=== PATIENT | female | born 1990 | race African-American/Black ===

== ENCOUNTER 2022-06-18 03:33 | Emergency (ER) | payer MEDICAID, SELFPAY ==
[2022-06-18 03:39] VITALS: BP 135/107; PULSE 95; RESP 16; TEMP 36.4; O2SAT 100
--- NOTE | 2022-06-18 04:13 | ED.GENADULT ---
HPI - General Adult General Chief complaint: Abdominal Pain Stated complaint: RLQ abd pain Time Seen by Provider: 06/18/22 03:55 History of Present Illness HPI narrative: this is a 31-year-old female presenting ED with chief complaint of urinary retention. Patient notes that 1 week ago she felt like if she had to urinate and when she went to the restroom she was unable to. Later that day she was able to void her bladder but has become progressively more difficult throughout the week. She has noted that she has had vaginal fullness over that time.In the last 24 hours she has been unable to void at all. Now she is having significant lower abdominal pain. patient has noticed increased urinary urgency but no dysuria or hematuria when she does urinate she denies fever, chills, nausea vomiting or diarrhea. Patient denies any recent vision changes or eye pain. She has no history of MS. Patient denies numbness tingling or weakness to any extremity does not note any neurologic signs. She denies dizziness or vertigo. She is having no issues with bowel continence. She has no history of lower back pain, cancer, IV drug abuse saddle anesthesia or difficulty walking. Related Data Allergies Allergy/AdvReac Type Severity Reaction Status Date / Time No Known Allergies Allergy Verified 06/18/22 03:48 Review of Systems Review of Systems: CONSTITUTIONAL: Denies night sweats. EYES: No eye pain ENT: Denies rhinorrhea CARDIOVASCULAR: Denies palpitations RESPIRATORY: Denies hemoptysis GASTROINTESTINAL: Denies hematemesis GENITOURINARY: Denies hematuria. SKIN: Denies rash MUSCULOSKELETAL: Denies myalgia. NEUROLOGIC: Denies weakness. PSYCHIATRIC: Denies delusions [facility] Social History Social History (Updated 06/18/22 @ 05:26 by Jorge Lundberg MD) Social History: Patient denies use of alcohol tobacco or marijuana Exam Narrative: APPEARANCE: patient appears very uncomfortable Head atraumatic. EYES: PERRLA/EOMI, NOSE: Normal no drainage NECK: Supple, Trachea midline RESPIRATORY: CTAB, No increased work of breathing. CARDIOVASCULAR: S1S2 appreciated ABDOMINAL: suprapubic fullness and tenderness. MUSCULOSKELETAl: No obvious deformities NEURO: Alert. Cranial nerves 2-12 grossly intact. Sensation light touch, motor function cerebellar function intact for 4 extremities. Gait exam was normal. SKIN:: Warm, dry. Normal color PSYCHIATRIC: Normal affect Course Vital Signs Vital signs: Vital Signs Temperature 97.6 F 06/18/22 03:39 Pulse Rate 95 06/18/22 03:39 Respiratory Rate 16 06/18/22 03:39 Blood Pressure 135/107 H 06/18/22 03:39 Pulse Oximetry 100 06/18/22 03:39 Oxygen Delivery Room Air 06/18/22 03:39 Temperature 97.6 F 06/18/22 03:39 Pulse Rate 95 06/18/22 03:39 Respiratory Rate 16 06/18/22 03:39 Blood Pressure 135/107 H 06/18/22 03:39 Pulse Oximetry 100 06/18/22 03:39 Oxygen Delivery Room Air 06/18/22 03:39 Medical Decision Making MDM Narrative Medical decision making narrative: This is a 31-year-old female presenting ED with urinary retention. A Ugalde was placed with immediate relief of her pain. Nursing staff noted that the patient's urethral opening was for smaller than usual. Urinalysis, urine and basic lab work were obtained. Urine revealed patient is and is approximately 8-10 weeks by last menstrual. After the Ugalde was placed the patient has no abdominal pain. She has no cramping, vaginal bleeding or vaginal discharge. I reached out to the OBGYN on-call Dr. Macias to see if there are any additional concerns for urinary retention in early . There were no additional concerns outside of standard treatment for retention. Given the patient's benign exam no indication for transvaginal ultrasound at this time. Urinalysis was not indicative of UTI. The patient's lab work was within normal limits. I cannot
[2022-06-18 04:42] LABS: Appearance Urine Clear (Clear); Bilirubin Urine Negative (Negative); Blood Urine Negative (Negative); Color Urine Yellow (Yellow); Glucose Urine UA Negative (Negative); Ketones Urine Negative (Negative); Leukocyte Esterase Ur Negative LEU/UL (Negative); Nitrate Urine Negative (Negative); Protein Urine Negative (Negative); Urobilinogen Urine 0.2 mg/dL (<2.0)
[2022-06-18 04:44] LABS: Bacteria Urine Trace /hpf; Mucus Urine Rare /lpf; RBC Urine 0-2 /hpf (0-2); WBC Urine 0-3 /hpf
[2022-06-18 04:46] LABS: Add Urine Microscopic? NO
[2022-06-18 04:47] LABS: Basophils Percent Auto 0.1 % (0.2-1.2); Eosinophils Absolute Auto 0.2 K/mm3 (0-0.3); Eosinophils Percent Auto 2.3 % (0-4.4); Hematocrit 31.6 % (37.0-47.0); Hemoglobin 11.1 g/dL (12.0-15.0); Immature Granulocyte Absolute 0.02 K/mm3 (0.00-0.031); Immature Granulocyte Percent A 0.2 % (0-0.5); Lymphocytes Absolute Auto 1.24 K/mm3 (0.9-3.2); Lymphocytes Percent Auto 13.8 % (18.3-44.2); Mean Corpuscular HGB Conc 35.1 g/dl (32-36); Mean Corpuscular Hemoglobin 28.9 pg (26-34); Mean Corpuscular Volume 82.3 fl (80-100); Mean Platelet Volume 9.6 fl (7.4-10.4); Monocytes Absolute Auto 0.8 K/mm3 (0.1-0.6); Monocytes Percent Auto 9.1 % (2.6-8.5); Neutrophils Absolute Auto 6.7 K/mm3 (1.3-6.7); Neutrophils Percent Auto 74.5 % (45.5-73.1); Platelet Count Result 206 k/mm3 (150-375); Red Blood Count 3.84 M/mm3 (4.2-5.4); Red Cell Distribution Width 13.6 % (11.5-14.5)
[2022-06-18 04:59] LABS: Anion Gap 5 mmol/L (8-16); Blood Urea Nitrogen 9 mg/dL (7-17); Calcium 8.9 mg/dL (8.4-10.2); Carbon Dioxide 24 mmol/L (22-30); Chloride 104 mmol/L (98-107); Estimated CRCL calculation 104 ml/min; Estimated Glomerular Filt Rate > 60; Glucose 100 mg/dL (65-110); Potassium 4.1 mmol/L (3.4-5.0); Sodium 133 mmol/L (137-145)
== END 2022-06-18 05:50 | disposition home or self-care (01) ==
PROVIDERS: Emergency Provider Emergency Medicine
DX: O26.891 Other specified pregnancy related conditions, first trimester (principal); R33.9 Retention of urine, unspecified; Z3A.00 Weeks of gestation of pregnancy not specified
CPT/HCPCS: 36415; 51702; 80048; 81003; 81025; 84702; 85025; 99283

== ENCOUNTER 2023-03-05 08:10 | Emergency (ER) | payer OTHER, SELFPAY ==
--- NOTE | ~2023-03-05 | CT_ITS ---
EXAMINATION: CT facial bones w con DATE: 03/05/2023 12:55 INDICATION: Right-sided predominant facial swelling TECHNIQUE: Computed tomography (CT) of the facial bones and maxillofacial region was performed with 1 00 mL Omnipaque-350 intravenous contrast. Coronal reconstructions were obtained. Automated exposure c ontrol and iterative reconstruction technique were employed. The dose-length product was 279.37 mGy-c m. COMPARISON: None. FINDINGS: Mild soft tissue swelling and subcutaneous edema extending from the forehead compressive bilateral pr eseptal soft tissues about the nose and superior labia. No abscess or soft tissue gas. Orbits appear otherwise normal with no post septal inflammatory stranding. Mild mucosal thickening throughout the p aranasal sinuses. No maxillofacial fractures or cortical erosions. Nasal septum is midline. Mastoid a ir cells and middle ear cavities are clear. Epiglottis and prevertebral soft tissues are normal witho ut evident airway narrowing. Right vertebral artery is dominant. Visualized portions of the brain are unremarkable. Bilateral parotid and submandibular glands appear normal and symmetric. There are a fe w asymmetric mildly prominent but still normal sized likely reactive submandibular and jugular chain lymph nodes, none measuring greater than 1 cm in maximal short axis diameter. IMPRESSION: 1. Mild facial soft tissue swelling and subcutaneous edema consistent with provided history of cellul itis. No evident abscess. Reviewed, dictated and finalized at location A. IMPRESSION: 1. Mild facial soft tissue swelling and subcutaneous edema consistent with prov ided history of cellulitis. No evident abscess.
[2023-03-05 08:16] VITALS: BP 143/72; PULSE 81; RESP 18; TEMP 36.5; O2SAT 100
[2023-03-05 11:30] VITALS: BP 136/80; PULSE 82; RESP 16; TEMP 36.8; O2SAT 98
--- NOTE | 2023-03-05 11:31 | ED.ALLEREA ---
HPI - Allergic Reaction General Chief complaint: Allergic Reaction <MANUEL Camarena Last Filed: 03/05/23 19:39> Stated complaint: swelling to face <MANUEL Camarena Last Filed: 03/05/23 19:39> Time Seen by Provider: 03/05/23 09:41 <MANUEL Camarena Last Filed: 03/05/23 19:39> History of Present Illness HPI narrative: 32-year-old female reports for evaluation of swelling to her face started this morning. Patient states yesterday, she noticed itchiness to her face and small itchy lesion she reports looks like mosquito bites to her right arm. States those went away, but she woke up this morning with her face swollen, the right side worse than the left. She is reporting discomfort in her right eye when she looks laterally. She denies itchiness or pain otherwise. The mosquito bite lesions have since resolved. She denies tongue or lip swelling, difficulty breathing, cough or congestion, sore throat, toothache, objective fever. She does report subjective fevers this a.m., did not take her temperature. She denies blurred vision or double vision, abdominal pain, nausea, vomiting or diarrhea. <MANUEL Camarena Last Filed: 03/05/23 19:39> Related Data Allergies/adverse reactions: Allergies Allergy/AdvReac Type Severity Reaction Status Date / Time No Known Allergies Allergy Verified 03/05/23 08:41 <MANUEL Camarena Last Filed: 03/05/23 19:39> Review of Systems Review of Systems: CONSTITUTIONAL: See HPI EYES: Denies visual changes, redness, or discharge. ENT: Denies rhinorrhea, congestion, sore throat, or otalgia. CARDIOVASCULAR: Denies chest pain, palpitations, or edema. RESPIRATORY: Denies cough or dyspnea. GASTROINTESTINAL: Denies abdominal pain, nausea, vomiting, or diarrhea. GENITOURINARY: Denies dysuria or hematuria. SKIN: See HPI MUSCULOSKELETAL: Denies back pain, joint pain, or myalgia. NEUROLOGIC: Denies headache, numbness, dizziness, or weakness. PSYCHIATRIC: Denies anxiety or depression. <MANUEL Camarena Last Filed: 03/05/23 19:39> [facility] Social History Social History: Social History Social History: Patient denies use of alcohol tobacco or marijuana <Beatris Serra PA-C - Last Filed: 03/05/23 19:39> Exam Narrative: GENERAL: Well-appearing, in no acute distress. Resting comfortably in exam bed, speaking in full sentences. No respiratory distress. HEAD: Normocephalic EYES: PERRLA, EOMI. Reported pain lateral eye movements in the right eye. Normal sclera, no drainage. ENT: Nares clear. Mucous membranes moist. Oropharynx without tonsillar hypertrophy exudate or other lesions. No tongue or lip swelling. Edema surrounding the orbits, worse on the right side. No warmth, fluctuation or induration appreciated. NECK: Supple. CHEST: No respiratory distress. Clear to auscultation, no adventitious breath sounds. HEART: Regular rate and rhythm. No murmur heard. Normal peripheral pulses. ABDOMEN: Soft, nontender, normal active bowel sounds. EXTREMITIES: Normal range of motion. No edema. SKIN: Warm, dry, no rash. NEURO: No focal deficits. Alert and oriented x3. PSYCH: Normal mood and affect. <Beatris Serra PA-C - Last Filed: 03/05/23 19:39> Course CLINICAL RESOURCE MANAGER/PA Physician Supervision For this patient encounter, I reviewed the CLINICAL RESOURCE MANAGER or PA documentation, treatment plan, and medical decision making and I had [id number] time with this patient. I performed all aspects of the MDM as documented. <Graciela Stovall MD - Last Filed: 03/14/23 16:00> Vital Signs Vital signs: Vital Signs Temperature 97.7 F 03/05/23 08:16 Pulse Rate 81 03/05/23 08:16 Respiratory Rate 18 03/05/23 08:16 Blood Pressure 143/72 H 03/05/23 08:16 Pulse Oximetry 100 03/05/23 08:16 Oxygen Delivery Room Air 03/05/23 08:16 Temperature 98.3 F 03/05/23 14:01
[2023-03-05] MEDS: FAMOTIDINE 20 MG/2 ML VIAL IV PUSH (11:50)
[2023-03-05] MEDS: SODIUM CHLORIDE 0.9% IV 1,000 ML 999 ML IV CONT (11:50)
[2023-03-05] MEDS: diphenhydrAMINE HCl INJ 50 MG/ML VIAL 25 MG IV PUSH (11:50)
[2023-03-05 12:02] LABS: Basophils Percent Auto 0.5 % (0.2-1.2); Eosinophils Absolute Auto 0.3 K/mm3 (0-0.3); Eosinophils Percent Auto 7.5 % (0-4.4); Hematocrit 38.4 % (37.0-47.0); Hemoglobin 12.3 g/dL (12.0-15.0); Immature Granulocyte Absolute 0.01 K/mm3 (0.00-0.031); Immature Granulocyte Percent A 0.2 % (0-0.5); Lymphocytes Absolute Auto 1.43 K/mm3 (0.9-3.2); Lymphocytes Percent Auto 33.6 % (18.3-44.2); Mean Corpuscular Hemoglobin 27.3 pg (26-34); Mean Corpuscular Volume 85.1 fl (80-100); Mean Platelet Volume 10.4 fl (7.4-10.4); Monocytes Absolute Auto 0.3 K/mm3 (0.1-0.6); Monocytes Percent Auto 7.1 % (2.6-8.5); Neutrophils Absolute Auto 2.2 K/mm3 (1.3-6.7); Neutrophils Percent Auto 51.1 % (45.5-73.1); Platelet Count Result 229 k/mm3 (150-375); Red Blood Count 4.51 M/mm3 (4.2-5.4); Red Cell Distribution Width 13.6 % (11.5-14.5); White Blood Count 4.3 K/mm3 (4.5-10.0)
[2023-03-05 12:17] LABS: Alanine Aminotransferase 9 U/L (6-35); Albumin Level 3.7 g/dL (3.5-5.1); Alkaline Phosphatase 44 U/L (38-126); Anion Gap 3 mmol/L (8-16); Aspartate Amino Transferase 16 U/L (14-36); Bilirubin,Total 0.5 mg/dL (0.2-1.3); Blood Urea Nitrogen 12 mg/dL (7-17); Calcium 8.3 mg/dL (8.4-10.2); Carbon Dioxide 28 mmol/L (22-30); Chloride 105 mmol/L (98-107); Estimated CRCL calculation 89 ml/min; Estimated Glomerular Filt Rate > 60; Glucose 88 mg/dL (65-110); Potassium 4.4 mmol/L (3.4-5.0); Sodium 136 mmol/L (137-145)
[2023-03-05 12:30] VITALS: BP 130/80; PULSE 82; RESP 16; TEMP 36.8; O2SAT 100
[2023-03-05 13:00] VITALS: BP 130/80; PULSE 80; RESP 16; O2SAT 99
[2023-03-05 14:01] VITALS: BP 132/78; PULSE 80; RESP 16; TEMP 36.8; O2SAT 98
== END 2023-03-05 14:03 | disposition home or self-care (01) ==
PROVIDERS: Emergency Provider Physician Assistant
DX: L03.213 Periorbital cellulitis (principal)
CPT/HCPCS: 36415; 70487; 80053; 81025; 85025; 96361; 96374; 96375; 99284; J1100; J1200; J7030; Q9967

== ENCOUNTER 2023-06-03 11:40 | Emergency (ER) | payer OTHER, SELFPAY ==
[2023-06-03] VITALS (32 sets, daily range): BP systolic 121–144; BP diastolic 69–99; PULSE 67–106; RESP 14–32; TEMP 37.2–37.3; O2SAT 95–100
--- NOTE | ~2023-06-03 | XR_ITS ---
EXAMINATION: XR chest 1V portable INDICATION: Chest pain TECHNIQUE: Portable AP chest at 1254 hours COMPARISON: None available FINDINGS: The lungs are free of acute opacities. No pleural effusion or pneumothorax. The cardiomedia stinal silhouette is normal. IMPRESSION: 1. No acute cardiopulmonary abnormality. Reviewed, dictated and finalized at location B.
--- NOTE | ~2023-06-03 | CT_ITS ---
EXAMINATION: CTA chest PE protocol DATE: 06/03/2023 14:58 INDICATION: Pleuritic chest pain TECHNIQUE: Computed tomography angiography (CTA) of the chest was performed with 100 mL Omnipaque-350 intravenous contrast timed to evaluate the pulmonary arteries. Coronal maximum intensity projection 3D-reconstructions were created by the technologist. The dose-length product (DLP) was 269.46 mGy-cm. Automated exposure control and iterative reconstruction technique were employed. COMPARISON: None. FINDINGS: The pulmonary arteries are well-opacified. No pulmonary embolism is identified. No pleural effusion or pneumothorax. The lungs are free of acute opacities. No pleural effusion or pneumothorax. The visualized osseous structures are unremarkable. IMPRESSION: 1. No pulmonary embolism or acute cardiopulmonary abnormality. Reviewed, dictated and finalized at location B.
--- NOTE | 2023-06-03 12:07 | ECG_ITS ---
Measurements Intervals [place] Rate: 62 P: 54 [place]: 122 QRS: 62 QRSD: 99 T: -50 QT: 397 QTc: 404 Interpretive Statements SINUS RHYTHM WITH MARKED SINUS ARRHYTHMIA ST-T WAVE ABNORMALITY IN ANTEROLAT/INF LEADS- CONSIDER ISCHEMIA ABNORMAL ECG NO PREVIOUS ECG AVAILABLE FOR COMPARISON Electronically Signed On 06-03-2023 17:13:06 CDT by Jose Luis Schumacher D.O.
[2023-06-03 12:25] LABS: Basophils Percent Auto 0.3 % (0.2-1.2); Eosinophils Absolute Auto 0.2 K/mm3 (0-0.3); Eosinophils Percent Auto 3.1 % (0-4.4); Hematocrit 36.1 % (37.0-47.0); Hemoglobin 11.8 g/dL (12.0-15.0); Immature Granulocyte Absolute 0.01 K/mm3 (0.00-0.031); Immature Granulocyte Percent A 0.1 % (0-0.5); Lymphocytes Absolute Auto 1.46 K/mm3 (0.9-3.2); Lymphocytes Percent Auto 21.4 % (18.3-44.2); Mean Corpuscular HGB Conc 32.7 g/dl (32-36); Mean Corpuscular Hemoglobin 27.3 pg (26-34); Mean Corpuscular Volume 83.4 fl (80-100); Monocytes Absolute Auto 0.6 K/mm3 (0.1-0.6); Monocytes Percent Auto 8.8 % (2.6-8.5); Neutrophils Absolute Auto 4.5 K/mm3 (1.3-6.7); Neutrophils Percent Auto 66.3 % (45.5-73.1); Platelet Count Result 215 k/mm3 (150-375); Red Blood Count 4.33 M/mm3 (4.2-5.4); Red Cell Distribution Width 14.6 % (11.5-14.5); White Blood Count 6.8 K/mm3 (4.5-10.0)
[2023-06-03 12:35] LABS: Prothrombin Time 14.2 Seconds (11.1-14.7)
[2023-06-03 12:36] LABS: Alanine Aminotransferase 14 U/L (6-35); Alkaline Phosphatase 58 U/L (38-126); Anion Gap 5 mmol/L (8-16); Aspartate Amino Transferase 22 U/L (14-36); Bilirubin,Total 0.4 mg/dL (0.2-1.3); Blood Urea Nitrogen 10 mg/dL (7-17); Calcium 8.5 mg/dL (8.4-10.2); Carbon Dioxide 27 mmol/L (22-30); Chloride 103 mmol/L (98-107); Estimated CRCL calculation 89 ml/min; Estimated Glomerular Filt Rate > 60; Glucose 95 mg/dL (65-110); Lipase 40 U/L (23-300); Potassium 3.5 mmol/L (3.4-5.0); Sodium 135 mmol/L (137-145)
[2023-06-03 12:37] LABS: Partial Thromboplastin Time 29.7 SECONDS (22.3-36.8)
--- NOTE | 2023-06-03 12:45 | ED.SOB ---
HPI - SOB/Dyspnea General Chief Complaint: Shortness of Breath/Dyspnea Stated Complaint: SOB Time Seen by Provider: 06/03/23 12:32 History of Present Illness HPI Narrative: 32-year-old female with a history of childhood asthma reports for evaluation for shortness of breath and chest tightness this morning. Patient states for the past few days, she has had intermittent numbness and paresthesias to the upper arms and throughout all of her digits as well as to the lateral aspect of both of her lower extremities. States this morning she woke up feeling short of breath with chest tightness that is worse with inspiration and came to the ED for further evaluation. She does report a history of childhood asthma and states this feels similar, however she is not currently being treated for asthma. States that she feels like the heat makes her chest pain and shortness of breath worse and states she fell like she was going to have a panic attack when she got into her car to come to the emergency department. She states she used a facial steamer this morning which did seem to help her shortness of breath. She reports a productive cough with yellow sputum this morning. She denies history of VTE, bilateral lower extremity edema, neck pain or injury, back injury. Patient says she has chronic low back pain which is unchanged from her baseline and denies new trauma. She does states she feels anxious at due to having difficulty breathing. Related Data Allergies Allergy/AdvReac Type Severity Reaction Status Date / Time No Known Allergies Allergy Verified 03/05/23 08:41 Review of Systems Review of Systems: CONSTITUTIONAL: Denies fever, chills EYES: Denies visual changes, redness, or discharge. ENT: Denies rhinorrhea, congestion, sore throat, or otalgia. CARDIOVASCULAR: See HPI RESPIRATORY: See HPI GASTROINTESTINAL: Denies abdominal pain, nausea, vomiting, or diarrhea. GENITOURINARY: Denies dysuria or hematuria. SKIN: Denies rash or itching. MUSCULOSKELETAL: Denies back pain, joint pain, or myalgia. NEUROLOGIC: See HPI PSYCHIATRIC: Denies anxiety or depression. [facility] Social History Social History Social History: Patient denies use of alcohol tobacco or marijuana Exam Narrative: GENERAL: Well-appearing, in no acute distress. Patient resting comfortably in exam bed. She is pleasant and conversational. Speaking in full sentences. HEAD: Normocephalic EYES: PERRLA ENT: Nares clear. Mucous membranes moist. Oropharynx without tonsillar hypertrophy exudate or other lesions. Bilateral TMs are holliday nonbulging. NECK: Supple. No midline cervical spinous tenderness, step-offs or deformities. BACK: No thoracolumbar spinous tenderness, step-offs or deformities. CHEST: No respiratory distress. Wheezing throughout all lung cohn. HEART: Regular rate and rhythm. No murmur heard. Normal peripheral pulses. ABDOMEN: Soft, nontender, normal active bowel sounds. EXTREMITIES: Normal range of motion. No edema. SKIN: Warm, dry, no rash. NEURO: No focal deficits. Alert and oriented x3. Cranial nerves II through XII grossly intact. Strength 5/5 in BUE and BLE. Sensation intact throughout. PSYCH: Normal mood and affect. Course Vital Signs Vital signs: Vital Signs Temperature 99.2 F 06/03/23 11:55 Pulse Rate 94 06/03/23 11:55 Respiratory Rate 20 06/03/23 11:55 Blood Pressure 144/94 H 06/03/23 11:55 Pulse Oximetry 98 06/03/23 11:55 Oxygen Delivery Room Air 06/03/23 11:55 Temperature 99.0 F 06/03/23 12:21 Pulse Rate 78 06/03/23 16:30 Respiratory Rate 18 06/03/23 16:30 Blood Pressure 136/76 06/03/23 15:47 Pulse Oximetry 100 06/03/23 15:47 Oxygen Delivery Room Air 06/03/23 12:21 MDM - SOB/Dyspnea MDM Narrative Medical decision making narrative: 32-year-old female reports for evaluation for chest tightness, shortness of breath and paresthesi
[2023-06-03 12:46] LABS: Troponin I < 0.012 ng/mL (0.000-0.034)
[2023-06-03] MEDS: methylPREDNISolone SOD SUCC 125 MG VIAL IV PUSH (12:48)
[2023-06-03] MEDS: ASPIRIN 81 MG CHEWABLE TABLET 324 MG PO (12:48)
[2023-06-03] MEDS: ALBUTEROL SULFATE NEB 2.5 MG/3 ML INH INHALATION ×2 (12:53→16:18)
[2023-06-03] MEDS: IPRATROPIUM BR 0.02% INH SOLN 0.5 MG/2.5 ML VIAL INHALATION ×2 (12:53→16:18)
[2023-06-03] MEDS: LORazepam INJ (*CRX) 2 MG/ML VIAL 1 MG IV PUSH (13:09)
[2023-06-03 13:19] LABS: NT Pro B Type Natriuretic Pept 117 pg/mL (19.9-100)
[2023-06-03 13:36] LABS: Influenza A QL RT-PCR Negative (Negative); Influenza B QL RT-PCR Negative (Negative); SARS-CoV-2 RNA PCR Negative (Negative)
[2023-06-03 13:51] LABS: D Dimer 0.87 ug/mL (<0.48)
[2023-06-03 15:43] LABS: Troponin I < 0.012 ng/mL (0.000-0.034)
== END 2023-06-03 18:15 | disposition home or self-care (01) ==
PROVIDERS: Preventive Medicine Aerospace Medicine; Emergency Provider Physician Assistant
DX: J45.909 Unspecified asthma, uncomplicated (principal); R07.89 Other chest pain; R20.2 Paresthesia of skin; Z20.822 Contact with and (suspected) exposure to COVID-19
CPT/HCPCS: 36415; 71045; 71275; 80053; 81025; 83690; 83880; 84484; 85025; 85380; 85610; 85730; 87636; 93005; 94640; 96374; 96375; 99284; A9270; J2060; J2930; Q9967

== ENCOUNTER 2023-07-31 08:36 | Emergency (ER) | payer OTHER, SELFPAY ==
[2023-07-31] VITALS (10 sets, daily range): BP systolic 136–163; BP diastolic 74–99; PULSE 66–97; RESP 12–24; TEMP 36.6; O2SAT 95–100
--- NOTE | ~2023-07-31 | XR_ITS ---
EXAMINATION: XR chest 2V DATE: 07/31/2023 12:07 INDICATION: Shortness of breath. TECHNIQUE: Frontal and lateral views of the chest were obtained. COMPARISON: Chest single view 06/03/2023, chest CT 06/03/2023 FINDINGS: There is no pneumonia, pleural effusion, or pneumothorax. The heart size is normal. IMPRESSION: 1. No acute cardiopulmonary disease. Reviewed, dictated and finalized at location A. MATION TECH
[2023-07-31 09:23] LABS: Influenza A QL RT-PCR Negative (Negative); Influenza B QL RT-PCR Negative (Negative); SARS-CoV-2 RNA PCR Negative (Negative)
[2023-07-31] MEDS: ACETAMINOPHEN 500 MG TABLET 1000 MG PO (12:12)
[2023-07-31] MEDS: SODIUM CHLORIDE 0.9% IV 1,000 ML 999 ML IV CONT (12:12)
[2023-07-31] MEDS: KETOROLAC 30 MG/ML VIAL (*BKC) IV PUSH (12:13)
[2023-07-31 12:23] LABS: Basophils Percent Auto 0.2 % (0.2-1.2); Hematocrit 38.3 % (37.0-47.0); Hemoglobin 12.3 g/dL (12.0-15.0); Immature Granulocyte Absolute 0.05 K/mm3 (0.00-0.031); Immature Granulocyte Percent A 0.4 % (0-0.5); Lymphocytes Absolute Auto 0.66 K/mm3 (0.9-3.2); Lymphocytes Percent Auto 5.5 % (18.3-44.2); Mean Corpuscular HGB Conc 32.1 g/dl (32-36); Mean Corpuscular Hemoglobin 26.5 pg (26-34); Mean Corpuscular Volume 82.5 fl (80-100); Mean Platelet Volume 10.1 fl (7.4-10.4); Monocytes Absolute Auto 0.4 K/mm3 (0.1-0.6); Monocytes Percent Auto 3.6 % (2.6-8.5); Neutrophils Absolute Auto 10.9 K/mm3 (1.3-6.7); Neutrophils Percent Auto 90.3 % (45.5-73.1); Platelet Count Result 271 k/mm3 (150-375); Red Blood Count 4.64 M/mm3 (4.2-5.4)
--- NOTE | 2023-07-31 12:33 | ED.GENADULT ---
HPI - General Adult General Chief complaint: Upper Respiratory Infection Stated complaint: URI Time Seen by Provider: 07/31/23 08:53 History of Present Illness HPI narrative: Renetta Degroot is a 32 y/o female who presents with reports of being in her normal state of health until last night when she started to have sore throat/ body aches/ feverish/ chills/ shortness of breath Denies abdominal pain/ nausea/vomiting Related Data Allergies Allergy/AdvReac Type Severity Reaction Status Date / Time No Known Allergies Allergy Verified 07/31/23 11:42 Review of Systems Review of Systems: CONSTITUTIONAL: Reports fever, chills, EYES: Denies visual changes, redness, or discharge. ENT: Denies rhinorrhea, reports sore throat that has improved at this time denies otalgia. CARDIOVASCULAR: Denies chest pain, palpitations, or edema. RESPIRATORY: Denies cough reports feeling SOB GASTROINTESTINAL: Denies abdominal pain, nausea, vomiting, or diarrhea. GENITOURINARY: Denies dysuria or hematuria. SKIN: Denies rash or itching. MUSCULOSKELETAL: Denies back pain, joint pain, or myalgia. NEUROLOGIC: Denies headache, numbness, dizziness, or weakness. PSYCHIATRIC: Denies anxiety or depression. [facility] Social History Social History Social History: Patient denies use of alcohol tobacco or marijuana Exam Narrative: GENERAL: Well-appearing, well-nourished, and in no acute distress/ feels warm possible febrile HEAD: Normocephalic, atraumatic. EYES: PERRLA and EOMI. ENT: Nares clear, no rhinorrhea or epistaxis. Mucous membranes moist. Oropharynx without tonsillar hypertrophy exudate or other lesions. Bilateral TMs pearly holliday nonbulging NECK: Supple. No adenopathy or masses. No carotid bruits or JVD CHEST: Clear to auscultation. No respiratory distress. No wheezes rales or rhonchi HEART: Regular rate and rhythm. No murmur heard. Normal peripheral pulses. ABDOMEN: Soft, nontender, nondistended, normal active bowel sounds. EXTREMITIES: Normal range of motion. No edema. SKIN: Warm, dry, no rash. NEURO: No focal deficits. Alert and oriented x3. PSYCH: Normal mood and affect. Course Vital Signs Vital signs: Vital Signs Temperature 36.6 C 07/31/23 08:38 Pulse Rate 87 07/31/23 08:38 Respiratory Rate 16 07/31/23 08:38 Blood Pressure 151/84 H 07/31/23 08:38 Pulse Oximetry 100 07/31/23 08:38 Oxygen Delivery Room Air 07/31/23 08:38 Temperature 36.6 C 07/31/23 08:38 Pulse Rate 97 07/31/23 15:04 Respiratory Rate 19 07/31/23 15:04 Blood Pressure 139/85 07/31/23 15:04 Pulse Oximetry 95 07/31/23 15:04 Oxygen Delivery Room Air 07/31/23 11:15 Medical Decision Making MDM Narrative Medical decision making narrative: On exam pt appears to not feel well, she states that it all started last night with all over body aches she had sore throat earlier but that is gone, she reports feeling a little SOB / no cough/ feeling chills Lung sounds clear abdomen soft no abdominal pain No CVA tenderness LIkely viral syndrome will treat with IV hydration/ torodol/ tylenol and check x ray / cbc/ cmp / covid /flu Patient re-evaluated and states she is feeling better but does have a cough and asking for a breathing treatment/ she states that she feels her asthma coming on with the cough/ mild slight wheezing noted - breathing treatment given and pt feeling much better CBC- WBC 12 CMP- stable Covid- negative Flu-negative X ray - negative Plan to d/c home with supportive treatment with her WBC 12 / hx of asthma will treat her as bronchitis with Zpack / albuterol PRN Discussed plan with pt and she verbalizes understanding and she agrees with plan Vital Signs Vital Signs: Vital Signs Temperature 36.6 C 07/31/23 08:38 Pulse Rate 87 07/31/23 08:38 Respiratory Rate 16 07/31/23 08:38 Blood Pressure 151/84 H 07/31/23 08:38 Pulse Oxi
[2023-07-31 12:34] LABS: Anion Gap 12 mmol/L (8-16); Blood Urea Nitrogen 13 mg/dL (7-17); Calcium 9.4 mg/dL (8.4-10.2); Carbon Dioxide 23 mmol/L (22-30); Chloride 101 mmol/L (98-107); Estimated CRCL calculation 103 ml/min; Estimated Glomerular Filt Rate > 60; Glucose 140 mg/dL (65-110); Sodium 136 mmol/L (137-145)
[2023-07-31] MEDS: ALBUTEROL SULFATE NEB 2.5 MG/3 ML INH INHALATION (14:28)
== END 2023-07-31 15:05 | disposition home or self-care (01) ==
PROVIDERS: Emergency Medicine; Emergency Provider Nurse Practitioner Family
DX: J45.901 Unspecified asthma with (acute) exacerbation (principal); J06.9 Acute upper respiratory infection, unspecified
CPT/HCPCS: 36415; 71046; 80048; 85025; 87636; 94640; 96361; 96374; 99284; A9270; J1885; J7030

== ENCOUNTER 2023-12-04 04:11 | Emergency (ER) | payer OTHER, SELFPAY ==
--- NOTE | ~2023-12-04 | XR_ITS ---
Clinical Indication: Shortness of breath PA and lateral views of the chest: Comparison: 07/31/2023 Findings: The lungs are clear, without evidence of focal consolidation or pleural effusion. Cardiome diastinal silhouette is within normal limits. Bones and soft tissues are unremarkable. Impression: Normal chest. Reviewed, dictated and finalized at location . Impression: Normal chest.
[2023-12-04 04:13] VITALS: BP 128/97; PULSE 56; RESP 17; O2SAT 98
--- NOTE | 2023-12-04 04:16 | ECG_ITS ---
Measurements Intervals [place] Rate: 67 P: 50 [place]: 132 QRS: 56 QRSD: 90 T: -69 QT: 357 QTc: 377 Interpretive Statements SINUS RHYTHM WITH SINUS ARRHYTHMIA T WAVE ABNORMALITY IN ANTEROLAT/INF LEADS- CONSIDER ISCHEMIA BASELINE ARTIFACT- I, II, III, AVR, AVL, AVF, V1-V3 ABNORMAL ECG COMPARED TO ECG 06/03/2023 15:26:09 NO SIGNIFICANT CHANGES Electronically Signed On 12-04-2023 6:29:44 CDT by Jose Luis Schumacher D.O.
[2023-12-04 04:18] VITALS: O2SAT 97
[2023-12-04 04:21] VITALS: PULSE 56
[2023-12-04 04:27] LABS: Basophils Percent Auto 0.4 % (0.2-1.2); Eosinophils Absolute Auto 0.3 K/mm3 (0-0.3); Eosinophils Percent Auto 3.3 % (0-4.4); Hematocrit 41.4 % (37.0-47.0); Hemoglobin 13.4 g/dL (12.0-15.0); Immature Granulocyte Absolute 0.02 K/mm3 (0.00-0.031); Immature Granulocyte Percent A 0.3 % (0-0.5); Lymphocytes Absolute Auto 3.12 K/mm3 (0.9-3.2); Lymphocytes Percent Auto 39.6 % (18.3-44.2); Mean Corpuscular HGB Conc 32.4 g/dl (32-36); Mean Corpuscular Hemoglobin 27.3 pg (26-34); Mean Corpuscular Volume 84.5 fl (80-100); Mean Platelet Volume 10.1 fl (7.4-10.4); Monocytes Absolute Auto 0.7 K/mm3 (0.1-0.6); Monocytes Percent Auto 8.6 % (2.6-8.5); Neutrophils Absolute Auto 3.8 K/mm3 (1.3-6.7); Neutrophils Percent Auto 47.8 % (45.5-73.1); Platelet Count Result 284 k/mm3 (150-375); Red Cell Distribution Width 14.3 % (11.5-14.5); White Blood Count 7.9 K/mm3 (4.5-10.0)
--- NOTE | 2023-12-04 04:32 | ED.GENADULT ---
HPI - General Adult General Chief complaint: Chest Pain Stated complaint: chest pain, SOB, cough/congestion Time Seen by Provider: 12/04/23 04:17 History of Present Illness HPI narrative: Patient 33-year-old female who presents emergency department with chief complaint of chest pain patient reports that about a month ago she had an upper respiratory infection reports having continual cough still reports that she has had pain in the left side of her chest patient reports the pain is sharp reports worse with inspiration. Patient states that she has had the cough has been productive of some mucus. Related Data Allergies Allergy/AdvReac Type Severity Reaction Status Date / Time No Known Allergies Allergy Verified 07/31/23 11:42 Review of Systems Review of Systems: A 10 system review of systems was completed on the patient and is negative except for what is stated in the HPI. Nursing and ancillary documentation was reviewed. [facility] Social History Social History Social History: Patient denies use of alcohol tobacco or marijuana Exam Narrative: GENERAL: Well-appearing, well-nourished, and in no acute distress. HEAD: Normocephalic, atraumatic. EYES: PERRLA and EOMI. ENT: Nares clear, no rhinorrhea or epistaxis. Mucous membranes moist. NECK: Supple. CHEST: Clear to auscultation. No respiratory distress. Chest wall is tender to palpation at the left sternal border HEART: Regular rate and rhythm. No murmur heard. Normal peripheral pulses. ABDOMEN: Soft, nontender, nondistended, normal active bowel sounds. EXTREMITIES: Normal range of motion. No edema. SKIN: Warm, dry, no rash. NEURO: No focal deficits. Alert and oriented x3. PSYCH: Normal mood and affect. Course Vital Signs Vital signs: Vital Signs Pulse Rate 56 L 12/04/23 04:13 Respiratory Rate 17 12/04/23 04:13 Blood Pressure 128/97 H 12/04/23 04:13 Pulse Oximetry 98 12/04/23 04:13 Oxygen Delivery Room Air 12/04/23 04:13 Pulse Rate 56 L 12/04/23 04:21 Respiratory Rate 17 12/04/23 04:13 Blood Pressure 128/97 H 12/04/23 04:13 Pulse Oximetry 97 12/04/23 04:18 Oxygen Delivery Room Air 12/04/23 04:18 Medical Decision Making MDM Narrative Medical decision making narrative: Differential diagnosis includes chest wall pain, ACS, pulmonary embolism, pneumothorax, pneumonia Chest x-ray showed no widened mediastinum no pneumothorax no new EKG showed no acute ischemic changes Laboratory studies were obtained the patient showed a white count of 7.9 hemoglobin 13.4 electrolytes were within normal limits troponin was negative lipase is normal with D-dimer was negative coags were normal Vital Signs Vital Signs: Vital Signs Pulse Rate 56 L 12/04/23 04:13 Respiratory Rate 17 12/04/23 04:13 Blood Pressure 128/97 H 12/04/23 04:13 Pulse Oximetry 98 12/04/23 04:13 Oxygen Delivery Room Air 12/04/23 04:13 Pulse Rate 56 L 12/04/23 04:21 Respiratory Rate 17 12/04/23 04:13 Blood Pressure 128/97 H 12/04/23 04:13 Pulse Oximetry 97 12/04/23 04:18 Oxygen Delivery Room Air 12/04/23 04:18 Lab Data 12/04/23 04:20 12/04/23 04:20 Labs: Lab Results 12/04/23 Range/Units 04:20 WBC 7.9 (4.5-10.0) K/mm3 RBC 4.90 (4.2-5.4) M/mm3 Hgb 13.4 (12.0-15.0) g/dL Hct 41.4 (37.0-47.0) % MCV 84.5 (80-100) fl MCH 27.3 (26-34) pg MCHC 32.4 (32-36) g/dl RDW 14.3 (11.5-14.5) % Plt Count 284 (150-375) k/mm3 MPV 10.1 (7.4-10.4) fl Immature Gran % (Auto) 0.3 (0-0.5) % Neut % (Auto) 47.8 (45.5-73.1) % Lymph % (Auto) 39.6 (18.3-44.2) % [place] % (Auto) 8.6 H (2.6-8.5) % Eos % (Auto) 3.3 (0-4.4) % Baso % (Auto) 0.4 (0.2-1.2) % Lymph # (Auto) 3.12 (0.9-3.2) K/mm3 [place] # (Auto) 0.7 H (0.1-0.6) K/mm3 Eos # (Auto) 0.3 (0-0.3) K/mm3 Baso # (Auto) 0.0 (0.0-0
[2023-12-04 04:36] LABS: Alanine Aminotransferase 13 U/L (6-35); Albumin Level 4.7 g/dL (3.5-5.1); Alkaline Phosphatase 76 U/L (38-126); Anion Gap 7 mmol/L (8-16); Aspartate Amino Transferase 22 U/L (14-36); Bilirubin,Total 0.5 mg/dL (0.2-1.3); Blood Urea Nitrogen 14 mg/dL (7-17); Calcium 9.7 mg/dL (8.4-10.2); Carbon Dioxide 27 mmol/L (22-30); Chloride 105 mmol/L (98-107); Estimated CRCL calculation 78 ml/min; Estimated Glomerular Filt Rate > 60; Glucose 104 mg/dL (65-110); Lipase 64 U/L (23-300); Potassium 3.7 mmol/L (3.4-5.0); Sodium 139 mmol/L (137-145)
[2023-12-04 04:37] LABS: Prothrombin Time 13.5 Seconds (11.1-14.7)
[2023-12-04 04:38] LABS: Partial Thromboplastin Time 33.1 Seconds (22.3-36.8)
[2023-12-04 04:48] LABS: Troponin I < 0.012 ng/mL (0.000-0.034)
[2023-12-04 06:36] VITALS: BP 132/77; PULSE 72; RESP 14; TEMP 36.7; O2SAT 100
== END 2023-12-04 06:38 | disposition home or self-care (01) ==
PROVIDERS: Emergency Provider Emergency Medicine
DX: J20.8 Acute bronchitis due to other specified organisms (principal); R07.89 Other chest pain; R94.31 Abnormal electrocardiogram [ECG] [EKG]
CPT/HCPCS: 36415; 71046; 80053; 83690; 84484; 85025; 85380; 85610; 85730; 93005; 99284